=== PATIENT | female | born 1990 | race African-American/Black ===

== ENCOUNTER 2017-04-16 16:57 | Inpatient (IN) ==
[2017-04-16] MEDS ORDERED: MEPERIDINE 50 MG/1 ML VIAL IV ONE (18:41)
[2017-04-16] MEDS ORDERED: LACTATED RINGERS 1,000 ML IV ONE (18:42)
[2017-04-16] MEDS ORDERED: ONDANSETRON 4 MG/2 ML VIAL IV ONE (18:42)
[2017-04-16] MEDS: MEPERIDINE 50 MG/1 ML VIAL IV PRN (22:28)
[2017-04-16] MEDS: ONDANSETRON 4 MG/2 ML VIAL IV PRN (22:28)
[2017-04-17] MEDS: LACTATED RINGERS 1,000 ML IV SCH ×3 (00:47→16:02)
[2017-04-17] MEDS: MEPERIDINE 50 MG/1 ML VIAL IV PRN ×2 (02:48→11:09)
[2017-04-17] MEDS ORDERED: BUTORPHANOL 2 MG/ML VIAL IV PRN (07:31)
[2017-04-17] MEDS ORDERED: OXYTOCIN/LR 20 UNIT/1,000 ML BAG IV SCH (08:00)
[2017-04-17 08:19] LABS: Basophils % 0.1 % (0.0-0.8); Eosinophils % 0.4 % (0.00-10.9); Hematocrit 31.7 VOL% (35.7-47.0); Hemoglobin 10.9 GM/DL (12.0-16.0); Immature Granulocytes % 0.4 %; Immature Granulocytes Absolute 0.04 #; Lymphocytes % 19.4 % (21.3-54.2); Mean Corpuscular HGB Conc 34.4 GM/DL (32-36); Mean Corpuscular Hemoglobin 29 PG (27-34); Mean Corpuscular Volume 84.3 FL (87-102); Monocytes # 1.3 10*3/uL (0.11-0.8); Monocytes % 12.1 % (1.7-12.7); Neutrophils % 67.6 % (38.7-73.9); Platelet Count 208 T/CUMM (130-400); Red Blood Count 3.76 MC/CUMM (3.8-5.5); White Blood Count 10.4 T/CUMM (4-12)
[2017-04-17 09:05] LABS: Albumin 2.5 G/DL (3.4-5.0); Bilirubin,Total 0.6 MG/DL (0.2-1.0); Calcium 8.9 MG/DL (8.5-10.1); Osmolality,Calculated 269.7 MOS/KG (273-304); Potassium 3.9 MMOL/L (3.5-5.1); Total Protein 6.2 G/DL (6.4-8.3)
[2017-04-17] MEDS ORDERED: LIDOCAINE 1% 50 ML VIAL ONE (09:30)
[2017-04-17] MEDS ORDERED: miSOPROStol 200 MCG TABLET ONE (09:30)
[2017-04-17] MEDS ORDERED: METHYLERGONOVINE 0.2 MG/1 ML AMP ONE (09:31)
--- NOTE | 2017-04-17 09:56 | OB/GYN History & Physical ---
History of Present Illness Chief complaint: Presented for complaints of uterine contractions. History of present illness: Ms. Hemphill is a 26 year old female 2 para 1 living 1 OSMAR 04/25/2017 estimated gestational age of 36 weeks who presented to the labor department with complaints of painful regular uterine contractions. The patient was observed throughout the night and her cervix was reexamined this morning she was 5-6 cm dilated in light of these findings patient was admitted for augmentation of active labor. The risk and benefits been thoroughly discussed with this patient significant other, plan of care has been discussed with Dr. Somers and all parties are in agreement plan. The patient received her care at the [facility] and she received routine care, her course was completed by the fact that the patient has a history of MS. She also has a history of hypertension. She has had 1 previous vaginal delivery and that infant weighed 6 pounds and 13 ounces and she reported no comp occasions with that . labs: She is O+, rubella is nonimmune, RPR is nonreactive, hepatitis B negative, HIV negative, GBS culture negative. Review of systems is negative with exception of above. Home Medications Medication Instructions Recorded Confirmed Type Labetalol Tab [Trandate Tab] 1 tablet PO BID 03/27/17 04/17/17 History No122/Iron/Folic Acid 1 tablet PO DAILY 03/27/17 04/17/17 History [ Multi Tablet] Allergies Allergy/AdvReac Type Severity Reaction Status Date / Time duloxetine [From Cymbalta] Allergy Depression Verified 04/10/17 10:55 Latex, Natural Rubber Allergy ITCHING Verified 04/10/17 10:55 Shellfish AdvReac Vomiting Verified 04/10/17 10:55 12 point system: reviewed and no additional remarkable complaints except as stated Medical,Surgical,& Family Hx - Medical History Cardio: History of: Hypertension Neurology: History of: Multiple Sclerosis Reproductive: History of: Sexually Transmitted Disorders (Chlamydia this ) - Surgical History Surgical History: noncontributory - Family History Family History: Reports;: Family Heart Disease, Family Hypertension - Social History Smoking Status: Former smoker Have you smoked in the last 12 months: Yes Marital Status: Single Lives With:: Significant Other Functional capacity: independent ambulation Exam [employer] - Constitutional Vitals: Vital Signs Temp Pulse Resp BP 04/17/17 04:00 62 18 120/72 04/17/17 00:00 97.9 F 91 H 18 133/71 04/16/17 20:00 98.1 F 81 18 132/78 General appearance: mild distress - Antepartum / Post Antepartum Exam Cervix - Dilatation: 6 cm Effacement: 80% Station: -2 Rupture: Intact Presentation: Vertex Heart Rate: 140 Abdomen obstetrics: Present: bowel sounds normal Vagina: Present: normal moisture Uterus exam: Present: enlarged - Respiratory Respiratory exam: Present: clear to auscultation bilaterally - Cardiovascular Cardiovascular exam: Present: regular rate and rhythm - GI/Abdominal GI/Abdominal exam: Present: normal bowel sounds, soft - Extremities Exam Extremities exam: Present: normal inspection - Neurological Exam Neurological exam: Present: alert, oriented X3 - Psychiatric Psychiatric exam: Present: normal affect, normal mood - Skin Skin exam: Present: normal color, warm Assessment and Plan (1) Active labor Status: Acute Assessment and plan: Admit IV fluids IV Pitocin per protocol Artificial rupture of membranes when appropriate Internal monitors if indicated Epidural anesthesia if desired IV pain meds as indicated Anticipate Current Visit: Yes (2) Hypertension affecting , antepartum Status: Acute Assessment and plan: Same as above. Current Visit: Yes Results - Labs CBC & BMP: 04/17/17 08:11 04/17/17 08:11 Quality Measures - VTE Contraindication to Pharmacological VTE Prophylaxis: Clinical assessment deems Pt at low risk, no prophalaxis needed
[2017-04-17] MEDS: ONDANSETRON 4 MG/2 ML VIAL IV PRN (11:12)
[2017-04-17] MEDS ORDERED: TERBUTALINE 1 MG/1 ML VIAL SUBCUT ONE (12:00)
[2017-04-17] MEDS ORDERED: ceFAZolin 2,000 MG in PREMIX 1 EACH IV ONE (12:02)
[2017-04-17] MEDS ORDERED: OXYTOCIN 10 UNIT/ML VIAL IM ONE (12:02)
[2017-04-17] MEDS ORDERED: TERBUTALINE 1 MG/1 ML VIAL SUBCUT PRN (12:03)
[2017-04-17] MEDS ORDERED: OXYTOCIN/LR 30 UNIT/1,000 ML BAG IV ONE (12:03)
[2017-04-17 12:53] LABS: Cord Venous Blood HCO3 18.3 MMOL/L; Cord Venous Blood PCO2 56.9 MMHG; Cord Venous Blood PO2 24.6
[2017-04-17] MEDS ORDERED: ePHEDrine 50 MG/ML AMP ONE (13:03)
[2017-04-17] MEDS ORDERED: MORPHINE 10 MG/10 ML VIAL ONE (13:04)
--- NOTE | 2017-04-17 13:17 | Anesthesia Post-Op ---
Anesthesia Post OP - Post Ansesthetic Evaluation Patient seen in post op: Yes Resp: within normal limits CV: within normal limits Mental: within normal limits Temp: within normal limits [id number]: within normal limits Nausea and Vomiting: within normal limits Pain: within normal limits
[2017-04-17] MEDS ORDERED: ACETAMINOPHEN 325 MG TABLET PO PRN (13:30)
[2017-04-17] MEDS ORDERED: OXYTOCIN/LR 20 UNIT/1,000 ML BAG IV ONE (13:30)
[2017-04-17] MEDS ORDERED: ONDANSETRON 4 MG/2 ML VIAL IV PRN (13:30)
[2017-04-17] MEDS ORDERED: RHO(D) IMMUNE GLOBULIN 300 MCG SYRINGE IM ONE (13:30)
--- NOTE | 2017-04-17 13:30 | Operative Note ---
Date of procedure: 04/17/17 Procedure: Preoperative diagnosis: Failure to progress, active labor Postoperative diagnosis: Same Anesthesia:[] Regional anesthesia Estimated blood loss: [] 400 Surgeon: Dr. Somers Findings: [] O occiput posterior, weight is 8 lbs. 5 oz. which is 2 pounds greater than her first child. Apgars 8 at 1 minute 9 at 5 minutes delivery time was 12:26 PM, blood gas and cord blood was obtained Complications: None Procedure: Low transverse section The patient was taken to the operating suite heart tones were obtained prior to and after regional anesthesia was obtained. She was placed in supine position her abdomen was prepped and draped in usual manner for major abdominal surgery. Through an abdominal incision the skin, subcutaneous, fascial layer and peritoneal the abdomen was entered. The bladder flap was created and a low transverse incision was made.. Fluid was clear and normal amount X, Apgars, the placenta was delivered and sent to lab for further evaluation. Injected with intrauterine Pitocin. The first layer of the uterus was closed with #1 Vicryl in a continuous locking manner. Close to imbricate the first layer with #1 Vicryl. The peritoneum was approximated with #2-0 Vicryl.[] All the last sponges and instruments were accounted for -2.) #2-0 Vicryl. Fascia was approximated with #0-0 Maxon.. The skin was approximated with gaviota. She tolerated procedure well and was taken to recovery room in stable condition. Addendum there was a band in the middle of the uterus that was thickened which possibly could have played a role in the infant descending completely into the pelvic cavity. Surgeon / Physician: Carl Somers Results - Labs CBC & BMP: 04/17/17 08:11 04/17/17 08:11 Discharge Plan - Discharge Medications No Action No122/Iron/Folic Acid [ Multi Tablet] 1 tablet PO DAILY Labetalol Tab [Trandate Tab] 1 tablet PO BID - Follow Up or Referral - Forms/Instructions Instructions: Early Labor Signs (GEN), Movement (GEN), Jayy Preparing for Delivery
[2017-04-17] MEDS ORDERED: diphenhydrAMINE CAP 50 MG CAPSULE ONE (16:54)
[2017-04-17] MEDS ORDERED: diphenhydrAMINE CAP 50 MG CAPSULE PO ONE (16:55)
[2017-04-18 06:25] LABS: Basophils % 0.2 % (0.0-0.8); Eosinophils % 0.2 % (0.00-10.9); Hematocrit 29.9 VOL% (35.7-47.0); Hemoglobin 10.1 GM/DL (12.0-16.0); Immature Granulocytes % 0.3 %; Immature Granulocytes Absolute 0.04 #; Lymphocytes # 1.8 10*3/uL (1.4-4.0); Mean Corpuscular HGB Conc 33.8 GM/DL (32-36); Mean Corpuscular Hemoglobin 29 PG (27-34); Mean Corpuscular Volume 84.9 FL (87-102); Mean Platelet Volume 12.4 FL (9.6-12.0); Monocytes # 1.4 10*3/uL (0.11-0.8); Monocytes % 10.5 % (1.7-12.7); Neutrophils # 9.7 10*3/uL (1.4-7.4); Neutrophils % 74.8 % (38.7-73.9); Platelet Count 194 T/CUMM (130-400); Red Blood Count 3.52 MC/CUMM (3.8-5.5); Red Cell Distribution Width 14.2 % (9.3-17.3); White Blood Count 12.9 T/CUMM (4-12)
[2017-04-18] MEDS: DOCUSATE SODIUM 100 MG CAPSULE PO SCH ×3 (08:41→22:40)
[2017-04-18] MEDS: MAGNESIUM HYDROXIDE SUSP 30 ML UDCUP PO PRN ×2 (08:41→19:39)
[2017-04-18] MEDS: SIMETHICONE CHEW 80 MG TABLET PO PRN ×2 (08:41→19:39)
[2017-04-18] MEDS: MULTIVITAMIN (PRENATAL) TABLET PO SCH (08:41)
--- NOTE | 2017-04-18 12:27 | Progress Note ---
Family Medicine PN Sub Interval history: Postoperative day #1 Status post section Lungs are clear, cardiac exam benign, abdomen soft incision sites intact Extremities well within normal limits Neurologic grossly intact Status post section Will possibly discharge in a.m. Exam (Progress Note) - Constitutional Vitals: Period Temp Pulse Resp BP Sys/Cortes Pulse Ox Last 24 Hr 97.1 F-98.4 F 78-107 18-20 110-148/68-90 95-99 Results - Labs CBC & BMP: 04/18/17 06:09 04/17/17 08:11 Quality Measures - VTE Contraindication to Pharmacological VTE Prophylaxis: Clinical assessment deems Pt at low risk, no prophalaxis needed Specialty Discharge - Follow Up or Referrals
[2017-04-18] MEDS: IBUPROFEN 800 MG TABLET PO PRN (19:34)
[2017-04-19] MEDS: LACTATED RINGERS 1,000 ML IV SCH ×2 (09:12→09:13)
[2017-04-19] MEDS: IBUPROFEN 800 MG TABLET PO PRN (09:19)
[2017-04-19] MEDS: MULTIVITAMIN (PRENATAL) TABLET PO SCH (09:19)
[2017-04-19] MEDS: DOCUSATE SODIUM 100 MG CAPSULE PO SCH (09:21)
--- NOTE | 2017-04-19 11:10 | Discharge Summary ---
Hospital Course - Hospital Course Hospital Course: routine postop course. No complaints this morning. Desires to go home Specialty Discharge - Follow Up or Referrals Follow up with: Carl Somers MD [Physician] - (Call Friday and make a 2 week follow up appointment) Discharge Plan - Discharge Data Disposition: Disch To Home/Self Care Condition at Discharge: Stable Discharge Diet: advance to your usual diet Activity: other (routine post op) Hygiene: may shower Weight Bearing at Discharge: full weight bearing Driving: not for (2 weeks) - Discharge Medications New Docusate Sodium Cap [Colace Cap] 100 mg PO BID #30 capsule Ibuprofen Tab [Motrin Tab] 800 mg PO Q8H PRN #30 tablet PRN Reason: Pain Severe (8-10) HYDROcodone/ACETAMIN 5-325 [[place] 5-325] 2 tablet PO Q4H PRN #20 tablet PRN Reason: Pain Moderate (4-7) No Action No122/Iron/Folic Acid [ Multi Tablet] 1 tablet PO DAILY Labetalol Tab [Trandate Tab] 1 tablet PO BID - Follow Up or Referral Follow Up: Carl Somers MD [Physician] - (Call Friday and make a 2 week follow up appointment) - Forms/Instructions Instructions: Section (DC), Depression (GEN), Bleeding (DC) Exam - Constitutional Vitals: Period Temp Pulse Resp BP Sys/Cortes Pulse Ox Last 24 Hr 96.9 F-98.2 F 67-107 18-18 88-141/56-90 98-98 General appearance: no acute distress - Head Head exam: Present: normal inspection - Eye Eye exam: Present: EOMI - GI/Abdominal GI/Abdominal exam: Present: other (Incision intact) Discharge Results Procedures and tests throughout hospitalization: Pending Orders 04/17/17 07:31 Urinalysis Routine DS: Provider Date of admission: 04/17/17 07:31 Primary care physician: . No PCP Attending physician on admission: Carl Somers MD Consults: 04/17/17 07:31 Consult to Anesthesiology [CONS] Routine Consulting Provider: Reason for Anesthesiology: Epidural Consult Comment: Epidural for pain managment 04/17/17 13:31 Consult to Chip Frier [CONS] Routine Consult Chip Frier: Breast Feeding Discharging clinician: Treva Ernst MD
[2017-04-19] MEDS ORDERED: DIPH/TET/ACEL PERT BOOSTER VACCINE 0.5 ML VIAL IM ONE (11:54)
[2017-04-19 12:34] VITALS: BP 146/83
== END 2017-04-19 14:55 | disposition home or self-care (01) | DRG 540 ==
LOC: N.LDOUT 16:57 → N.LD 16:58 → N.OB 04-17 16:56
PROVIDERS: ADMIT Obstetrics & Gynecology; ATTEND Obstetrics & Gynecology
PROC: LDCSECT (ICD-10-PCS; 2017-04-17 12:00)